=== PATIENT | male | born 1930 | race Caucasian/White ===

== ENCOUNTER 2016-03-17 15:31 | Emergency (ER) | payer MEDICARE ==
[~2016-03-17] VITALS: Ht 167.6 cm; Wt 70.7 kg
[2016-03-17 15:35] VITALS: BP 149/94; PULSE 90; RESP 16; TEMP 99.3; O2SAT 99
[2016-03-17] MEDS ORDERED: ALLO100T PO (15:51)
[2016-03-17] MEDS ORDERED: ATEN25TA PO (15:51)
[2016-03-17] MEDS ORDERED: SIMV40TA PO (15:51)
[2016-03-17] MEDS ORDERED: TAMS5CAP PO (15:51)
[2016-03-17] MEDS ORDERED: MULTCAP14 PO (15:51)
[2016-03-17 15:52] VITALS: BP 194/89; PULSE 89; RESP 16; O2SAT 98
[2016-03-17] MEDS ORDERED: PENI500T PO (16:13)
--- NOTE | 2016-03-17 16:14 | PD ---
HPI Chief Complaint: Hypertension Time Seen by Provider: 15:43 Travel History International Travel<30 days: No Contact w/Intl Traveler<30days: No Traveled to known affect area: No History of Present Illness HPI This 85-year-old male is complaining of high blood pressure. He went to a dentist a few days ago for an extraction in the dentist would not do the extraction because his systolic pressure was over 200. He has had an abscess and S2. He had been on antibiotics but ran out of the antibiotic's couple of days ago and now is having pain in the tooth. He is to see the dentist in a few days. He has been on blood pressure medicine for a long time. He is on atenolol 12.5 and recently increased to 25. He is quite active and exercises on a regular basis. He has no history of heart disease or stroke. 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 PFSH Past Medical History High Cholesterol: Yes Diminished Hearing: No Gout: Yes Genitourinary: Yes Hypertension: Yes Triglycerides - High: Yes Tetanus Vaccination: < 5 Years Influenza Vaccination: Yes Social History Alcohol Use: Yes (SOCIALLY) Tobacco Use: No Substance Use: No Allergies-Medications (Allergen,Severity, Reaction): Coded Allergies: Levaquin (Verified Allergy, Unknown, 03/17/16) Sulfa (Verified Allergy, Unknown, 03/17/16) Reported Meds & Prescriptions Reported Meds & Active Scripts Active Reported Flomax (Tamsulosin HCl) 0.4 Mg Cap 0.4 Mg PO DAILY Multi For Him (Multiple Vitamins W/ Minerals) 1 Cap Cap 1 Cap PO DAILY Simvastatin 40 Mg Tab 40 Mg PO HS Atenolol 25 Mg Tab 25 Mg PO DAILY Allopurinol 100 Mg Tab 200 Mg PO BID Review of Systems General / Constitutional: No: Fever, Chills Eyes: No: Diploplia HENT: Positive: Dental Difficulties, No: Headaches Cardiovascular: No: Chest Pain or Discomfort Respiratory: No: Shortness of Breath Gastrointestinal: No: Vomiting, Diarrhea Musculoskeletal: No: Myalgias Hematologic/Lymphatic: No: Easy Bruising Physical Exam Narrative GENERAL: Well-developed male SKIN: Warm and dry. HEAD: Atraumatic. Normocephalic. EYES: Pupils equal and round. No scleral icterus. No injection or drainage. ENT: No nasal bleeding or discharge. Mucous membranes pink and moist. Left maxillary posterior molar is carious and tender NECK: Trachea midline. No JVD. CARDIOVASCULAR: Regular rate and rhythm. No murmur appreciated. RESPIRATORY: No accessory muscle use. Clear to auscultation. Breath sounds equal bilaterally. GASTROINTESTINAL: Abdomen soft, non-tender, nondistended. Hepatic and splenic margins not palpable. MUSCULOSKELETAL: No obvious deformities. No clubbing. No cyanosis. No edema. NEUROLOGICAL: Awake and alert. No obvious cranial nerve deficits. Motor grossly within normal limits. Normal speech. PSYCHIATRIC: Appropriate mood and affect; insight and judgment normal. Data Data Last Documented VS Vital Signs Date Time Temp Pulse Resp B/P Pulse Ox O2 Delivery O2 Flow Rate FiO2 03/17/16 15:52 89 16 98 Room Air 03/17/16 15:52 194/89 03/17/16 15:35 99.3 [facility] Medical Decision Making Medical Screen Exam Complete: Yes Emergency Medical Condition: Yes Medical Record Reviewed: Yes Differential Diagnosis Differential includes hypertension, dental abscess Narrative Course Patient has had repeated elevated readings of blood pressure. He is on a low dose of atenolol and I will increase the dose to 25 twice a day. I will also prescribe penicillin for his dental abscess Diagnosis Primary Impression: Hypertension Qualified Code: I10 - Essential hypertension Additional Impression: Dental abscess Additional Instructions: Increase atenolol to 50 mg daily Scripts Penicillin V Potassium 500 Mg Etb455 Mg PO Q6H 14 Days Ref 0 Prov:Brenden Riley MD 03/17/16 Disposition: 01 DISCHARGE HOME Condition: Stable Brenden Riley MD Mar 17, 2016 16:14
[2016-03-17 16:17] VITALS: BP 185/85; PULSE 81; RESP 16; O2SAT 99
== END 2016-03-17 16:23 | disposition home or self-care (01) ==
LOC: PHED 15:31
DX: I10 Essential (primary) hypertension (principal); K04.7 Periapical abscess without sinus; E78.00 Pure hypercholesterolemia, unspecified; M10.9 Gout, unspecified
CPT/HCPCS: 99283